=== PATIENT | male | born 1965 | race African-American/Black ===

== ENCOUNTER 2021-04-25 15:22 | Emergency (ER) | payer MEDICARE ==
[~2021-04-25] VITALS: Ht 180.3 cm; Wt 106.7 kg
--- NOTE | 2021-04-25 16:12 | NUR ---
BIBS FOR CONSTIPATION. LAST BM TP MORNING WHICH WAS SMALL AND WITH SOME BLOOD. DENIES PAIN. ABDOMEN SOFT AND NON-DISTENDED. WILL CONTINUE TO MONITOR THE PATIENT
--- NOTE | 2021-04-25 16:37 | NUR ---
THE PATIENT IS TAKEN TO CT
--- NOTE | 2021-04-25 16:56 | NUR ---
THE PATIENT IS BACK FROM CT
[2021-04-25 17:23] LABS: BASOPHILS % (AUTO) 0.4 % (0.0-2.0); HEMATOCRIT 47 % (39-51); HEMOGLOBIN 15.7 g/dL (13.5-17.5); LYMPHOCYTES # (AUTO) 1.6 K/uL (0.8-4.8); LYMPHOCYTES % (AUTO) 22.9 % (20.0-44.0); MEAN CORPUSCULAR HGB CONC 33 g/dl (31.0-36.0); MEAN CORPUSCULAR VOLUME 95 fL (80-96); MONOCYTES # (AUTO) 0.5 K/uL (0.1-1.30); MONOCYTES % (AUTO) 7.2 % (2.0-12.0); NEUTROPHILS # (AUTO) 4.8 K/uL (1.8-8.9); NEUTROPHILS % (AUTO) 68.5 % (43.0-81.0); PLATELET COUNT (AUTO) 162 K/uL (150-450); RED BLOOD CELL COUNT(AUTO) 4.94 MIL/uL (4.5-6.0)
[2021-04-25 17:37] LABS: CALCIUM, SERUM 8.5 mg/dL (8.5-10.1); CREATININE 1.5 mg/dL (0.6-1.3); POTASSIUM 3.8 mmol/L (3.5-5.1)
[2021-04-25] MEDS ORDERED: SENN-261 PO (17:54)
--- NOTE | 2021-04-25 18:03 | NUR ---
Patient discharged to home in stable condition. Written and verbal after care instructions given. Patient verbalizes understanding of instruction.
[2021-04-25 18:40] VITALS: BP 125/93
== END 2021-04-25 18:41 | disposition home or self-care (01) ==
LOC: ER 15:30
DX: K59.00 Constipation, unspecified (principal); K64.9 Unspecified hemorrhoids; I10 Essential (primary) hypertension; Z60.2 Problems related to living alone; Z79.899 Other long term (current) drug therapy
CPT/HCPCS: 36415; 74021; 80048-TC; 85025-TC